=== PATIENT | male | born 1970 | race Two or more races ===

== ENCOUNTER 2020-04-23 09:18 | Inpatient (IN) | payer MEDICAID, OTHER ==
[~2020-04-23] VITALS: Ht 162.6 cm; Wt 81.6 kg
[2020-04-23] MEDS ORDERED: PREDNISONE 20MG TABLET PO STA (09:41)
[2020-04-23] MEDS ORDERED: ALBUTEROL (0.083%) 2.5MG/3ML NEB HHN STA (09:41)
[2020-04-23] MEDS ORDERED: AZITHROMYCIN 500 MG TABLET PO ONE (09:45)
[2020-04-23] MEDS ORDERED: MAGNESIUM 2 G PREMIX 50 ML IV ONE (09:45)
[2020-04-23 10:02] LABS: BASOPHILS % 0.7 % (0.0-2.0); EOSINOPHILS % 10.9 % (0.0-5.0); HEMATOCRIT. 47.7 % (42.0-52.0); HEMOGLOBIN. 16.6 g/dL (14.0-18.0); LYMPHOCYTES % 36.6 % (20.0-50.0); MEAN CORPUSCULAR HEMOGLOBIN 33.1 pg (28.0-32.0); MEAN PLATELET VOLUME 9.1 fl (7.4-10.4); MONOCYTES % 7.1 % (2.0-8.0); NEUTROPHILS % 44.7 % (40.0-76.0); PLATELET 288 x1000/uL (130-400); RED BLOOD CELL COUNT 5.02 mill/uL (4.7-6.1); RED CELL DISTRIBUTION WIDTH 13.8 % (11.6-14.6)
[2020-04-23 10:09] LABS: CHLORIDE 106 mEq/L (98-107)
[2020-04-23] MEDS ORDERED: AMLODIPINE 5MG TABLET PO ONE (12:30)
[2020-04-23] MEDS ORDERED: CEFTRIAXONE 1 G PREMIX 50 ML IV ONE (14:00)
[2020-04-23] MEDS ORDERED: NITROGLYCERIN 0.4MG TABLET SL SL PRN (14:15)
[2020-04-23] MEDS ORDERED: DOCUSATE SODIUM 100MG CAPSULE PO PRN (14:15)
[2020-04-23] MEDS ORDERED: MAGNESIUM/ALUMINUM HYDROXIDE/SIMETHICONE 30ML UDC PO PRN (14:15)
[2020-04-23] MEDS ORDERED: ONDANSETRON HCL 4MG/2ML INJ IV PRN (14:15)
[2020-04-23] MEDS ORDERED: ZOLPIDEM TARTRATE 5MG TABLET PO PRN (14:15)
[2020-04-23] MEDS ORDERED: GUAIFENESIN 200MG/10ML SUGAR FREE UDC PO PRN (14:15)
[2020-04-23] MEDS ORDERED: NA PHOS,M-B/NA PHOS,DI-BA ENEMA 118ML PR PRN (14:15)
[2020-04-23] MEDS ORDERED: LORAZEPAM 0.5MG TABLET PO PRN (14:15)
[2020-04-23] MEDS ORDERED: ACETAMINOPHEN 325MG TABLET PO PRN ×2 (14:15)
[2020-04-23] MEDS ORDERED: KETOROLAC 15MG/ML VIAL IV PRN (14:15)
[2020-04-23] MEDS ORDERED: IPRATROPIUM/ALBUTEROL 0.5-3(2.5)MG/3ML NEB ORI PRN (14:15)
[2020-04-23 14:58] VITALS: BP 158/98
[2020-04-23 15:00] VITALS: BP 158/98
[2020-04-23 16:03] LABS: ETHANOL BLOOD < 10 mg/dL
[2020-04-23 16:06] LABS: LDL CHOLESTEROL 197 mg/dL (5-100)
[2020-04-23 16:08] LABS: HDL CHOLESTEROL 35 mg/dL (40-59)
[2020-04-23 16:14] LABS: *BARBITURATES SCREEN URINE NEGATIVE (NEGATIVE); *BENZODIAZEPINES SCREEN URINE NEGATIVE (NEGATIVE); METHADONE URINE SCREEN NEGATIVE (NEGATIVE); OPIATES URINE SCREEN NEGATIVE (NEGATIVE)
[2020-04-23 16:15] LABS: CANNABINOID URINE SCREEN PRESUMTIVE POSITIVE (NEGATIVE); PHENCYCLIDINE URINE SCREEN NEGATIVE (NEGATIVE)
[2020-04-23 16:16] LABS: *COCAINE SCREEN URINE NEGATIVE (NEGATIVE)
[2020-04-23 16:18] LABS: *AMPHETAMINES SCREEN URINE NEGATIVE (NEGATIVE)
[2020-04-23] MEDS ORDERED: AZITHROMYCIN 500 MG in DEXT 5% WATER 250 ML IV SCH (17:00)
[2020-04-23] MEDS: METHYLPREDNISOLONE SOD SUCC 125 MG/2 ML VIAL IV SCH ×2 (17:21→21:32)
[2020-04-23] MEDS: ENOXAPARIN 40MG/0.4ML SYR SUBCUT SCH (17:21)
[2020-04-23] MEDS: GUAIFENESIN/DM 600MG/30MG ER TAB 12HR PO SCH (21:31)
[2020-04-23] MEDS: ATORVASTATIN CALCIUM 20MG TABLET PO SCH (21:31)
[2020-04-23] MEDS: ASCORBIC ACID 500 MG TABLET PO SCH (21:31)
[2020-04-23] MEDS: FAMOTIDINE 20MG TABLET PO SCH (21:31)
[2020-04-23] MEDS: CLONIDINE 0.1MG TABLET PO PRN (21:47)
[2020-04-23] MEDS ORDERED: ALBUTEROL 6.7GM HFA INHALER ORI PRN (22:15)
[2020-04-23] MEDS: ALBUTEROL 6.7GM HFA INHALER ORI SCH (23:30)
[2020-04-24] VITALS: BP 148/96
[2020-04-24 00:18] LABS: CREATINE KINASE 238 IU/L (39-308)
[2020-04-24 00:19] LABS: CREATINE KINASE MB FRACTION < 1.0 ng/mL (0.5-3.6)
[2020-04-24 04:00] VITALS: BP 141/97
[2020-04-24] MEDS: CLONIDINE 0.1MG TABLET PO PRN ×2 (04:25→16:17)
[2020-04-24 06:17] LABS: CHLORIDE 104 mEq/L (98-107)
[2020-04-24 06:27] LABS: BASOPHILS % 0.1 % (0.0-2.0); HEMATOCRIT. 46.9 % (42.0-52.0); HEMOGLOBIN. 16.3 g/dL (14.0-18.0); LYMPHOCYTES % 14.1 % (20.0-50.0); MEAN CORPUSCULAR VOLUME 95.2 fL (80.0-94.0); MEAN PLATELET VOLUME 9.3 fl (7.4-10.4); MONOCYTES % 1.2 % (2.0-8.0); NEUTROPHILS % 84.6 % (40.0-76.0); PHOSPHORUS 2.1 mg/dL (2.5-4.9); PLATELET 289 x1000/uL (130-400); RED BLOOD CELL COUNT 4.93 mill/uL (4.7-6.1); RED CELL DISTRIBUTION WIDTH 13.5 % (11.6-14.6)
[2020-04-24 06:28] LABS: CREATINE KINASE 215 IU/L (39-308)
[2020-04-24 06:32] LABS: CREATINE KINASE MB FRACTION < 1.0 ng/mL (0.5-3.6)
[2020-04-24] MEDS: METHYLPREDNISOLONE SOD SUCC 125 MG/2 ML VIAL IV SCH ×2 (06:32→14:51)
[2020-04-24 08:00] VITALS: BP 141/94
[2020-04-24] MEDS: ASCORBIC ACID 500 MG TABLET PO SCH ×2 (08:09→20:49)
[2020-04-24] MEDS: FAMOTIDINE 20MG TABLET PO SCH ×2 (08:10→20:49)
[2020-04-24] MEDS: GUAIFENESIN/DM 600MG/30MG ER TAB 12HR PO SCH ×2 (08:10→20:48)
[2020-04-24] MEDS: ZINC SULFATE 220 MG ( 50 ) CAPSULE PO SCH (08:10)
[2020-04-24] MEDS: ALBUTEROL 6.7GM HFA INHALER ORI SCH ×3 (09:10→16:35)
[2020-04-24 12:00] VITALS: BP 132/93
[2020-04-24] MEDS: CEFTRIAXONE 1,000 MG in DEXTROSE 5% WATER 50 ML IV SCH (14:59)
[2020-04-24] MEDS: ENOXAPARIN 40MG/0.4ML SYR SUBCUT SCH (15:09)
[2020-04-24 16:00] VITALS: BP 150/102
[2020-04-24] MEDS ORDERED: CEFTRIAXONE 1 G PREMIX 50 ML IV SCH (16:00)
[2020-04-24] MEDS ORDERED: AZITHROMYCIN 500 MG in DEXT 5% WATER 250 ML IV SCH (16:00)
[2020-04-24 20:00] VITALS: BP 136/94
[2020-04-24] MEDS: IPRATROPIUM/ALBUTEROL 0.5-3(2.5)MG/3ML NEB HHN SCH (20:20)
[2020-04-24] MEDS: ATORVASTATIN CALCIUM 20MG TABLET PO SCH (20:48)
[2020-04-24] MEDS: METHYLPREDNISOLONE SOD SUCC 40 MG/ML VIAL IV SCH (20:50)
[2020-04-25] MEDS: IPRATROPIUM/ALBUTEROL 0.5-3(2.5)MG/3ML NEB HHN SCH ×5 (00:29→15:22)
[2020-04-25 00:49] VITALS: BP 152/98
[2020-04-25] MEDS: CLONIDINE 0.1MG TABLET PO PRN (00:50)
[2020-04-25 04:30] VITALS: BP 125/88
[2020-04-25] MEDS: METHYLPREDNISOLONE SOD SUCC 40 MG/ML VIAL IV SCH ×2 (06:16→13:43)
[2020-04-25 08:00] VITALS: BP 131/73
[2020-04-25] MEDS: FAMOTIDINE 20MG TABLET PO SCH (09:15)
[2020-04-25] MEDS: GUAIFENESIN/DM 600MG/30MG ER TAB 12HR PO SCH (09:15)
[2020-04-25] MEDS: ZINC SULFATE 220 MG ( 50 ) CAPSULE PO SCH (09:15)
[2020-04-25] MEDS: ASCORBIC ACID 500 MG TABLET PO SCH (09:15)
[2020-04-25 10:36] VITALS: BP 145/89
[2020-04-25 12:00] VITALS: BP 145/89
[2020-04-25] MEDS: CEFTRIAXONE 1,000 MG in DEXTROSE 5% WATER 50 ML IV SCH (13:43)
[2020-04-25] MEDS ORDERED: MONTELUKAST SODIUM 10MG TABLET PO SCH (17:00)
== END 2020-04-25 15:45 | disposition home or self-care (01) | DRG 133 ==
LOC: ER 09:18 → 7WST 12:28 → EDBEDREQTM 12:29 → EDBEDREQ 12:29 → ENRESERV 13:20 → 5WST 04-24 16:45
PROVIDERS: ADMIT Internal Medicine; ATTEND Internal Medicine
DX: J96.00 Acute respiratory failure, unspecified whether with hypoxia or hypercapnia (principal); J18.9 Pneumonia, unspecified organism; J44.1 Chronic obstructive pulmonary disease with (acute) exacerbation; J44.0 Chronic obstructive pulmonary disease with (acute) lower respiratory infection; J45.901 Unspecified asthma with (acute) exacerbation; E66.9 Obesity, unspecified; Z20.828 Contact with and (suspected) exposure to other viral communicable diseases; F12.10 Cannabis abuse, uncomplicated; E78.5 Hyperlipidemia, unspecified; D72.1 Eosinophilia; Z87.891 Personal history of nicotine dependence; Z68.30 Body mass index [BMI] 30.0-30.9, adult
CPT/HCPCS: 36415; 71045; 80053; 80061; 80305; 80320; 82550; 82553; 83036; 83735; 83880; 84100; 84145; 84484; 85025; 87635; 93005; 93970; 94640; 99285; J0456; J0696; J1650; J2920; J2930; J3475; J7060; J7512; G0480